=== PATIENT | female | born 1995 | race African-American/Black ===

== ENCOUNTER 2019-11-01 04:21 | Emergency (ER) | payer MEDICAID, OTHER ==
[2019-11-01] MEDS ORDERED: Acetaminophen 500 MG TAB ONE (04:43)
[2019-11-01] MEDS ORDERED: Morphine 4 MG/ML VIAL ONE ×2 (05:00→05:28)
[2019-11-01] MEDS ORDERED: Ondansetron PF 4 MG/2 ML Vial ONE ×2 (05:00→05:28)
[2019-11-01] MEDS ORDERED: cefTRIAXone\\ROCEPHIN 2 GM VIAL ONE (05:28)
[2019-11-01] MEDS ORDERED: Sodium Chloride 0.9% 100 ML ONE (05:28)
[2019-11-01 05:38] LABS: Anisocytosis MODERATE=16-30 cells (100X) (0-5/hpf); Band 14 % (5-11); Hemoglobin 7.3 g/dL (12.0-16.0); Hypochromia MODERATE=16-30 cells (100X) (0-5/hpf); Lymphocytes 10 % (21-51); MDiff Complete? YES; Mean Corpuscular Hemoglobin 18.7 pg (27.0-31.0); Mean Corpuscular Volume 64.4 fL (78.0-98.0); Mean Platelet Volume 8.2 fL (7.4-10.4); Microcytosis MODERATE=15-30 cells (100X) (0-5/hpf); Monocytes 8 % (0-10); Neutrophil 68 % (42-75); Platelet Count 313 thou/uL (130-400); Platelet Morphology Comment Appears Adequate; Poikilocytosis MODERATE=16-30 cells (100X) (0-5/hpf); RBC Distribution Width 16.3 % (11.5-14.5); Red Blood Cell (RBC) Count 3.89 mill/uL (4.20-5.40); White Blood Cell (WBC) Count 24.3 thou/uL (4.8-10.8)
[2019-11-01 05:44] LABS: BHCG - Serum Negative (NEGATIVE); Pregs Control Bar Appear? YES (CONTROL BAR)
[2019-11-01 05:44] LABS: ALT (SGPT) 9 U/L (8-55); AST (SGOT) 23 U/L (5-34); Albumin 3.9 g/dL (3.5-5.0); Alkaline Phosphatase 71 U/L (40-110); Anion Gap 17 mmol/L (10-20); BUN (Urea Nitrogen) 8 mg/dL (7.0-18.7); Bilirubin, Total 0.5 mg/dL (0.2-1.2); Calc. Creatinine Clearance 0 mL/min (70-130); Carbon Dioxide 19 mmol/L (22-29); Chloride 101 mmol/L (98-107); Estimated GFR-MDRD 84; Globulin 3.8 g/dL (2.4-3.5); Glucose 132 mg/dL (70-105); Potassium 3.4 mmol/L (3.5-5.1); Protein, Total 7.7 g/dL (6.0-8.3)
[2019-11-01 05:58] LABS: Sodium 134 mmol/L (136-145)
[2019-11-01] MEDS ORDERED: Vancomycin HCl 750 MG VIAL ONE (06:39)
[2019-11-01] MEDS ORDERED: Iopamidol 370 76% 100 ML VIAL ONE (09:00)
--- NOTE | 2019-11-01 11:30 | CT ---
CT OF THE PELVIS WITH IV CONTRAST: Date: 11/01/2019 INDICATION: History of buttock abscess. COMPARISON: None. FINDINGS: The visualized unopacified large and small bowel appear within normal limits. There is a normal appen ngoc in the right lower quadrant of the abdomen. The bladder and reproductive structures appear within normal limits. No free fluid or enlarged lymph nodes are evident. There are peripherally enhancing fluid and gas collections surrounding the anus. The collection on th e right measures 4.8 x 3.0 x 5.1 cm. The collection on the left measures 5.0 x 1.9 x 5.9 cm. These ex tend into the ischioanal fossa bilaterally. There is some reticulation of the subcutaneous fat of the buttocks along the midline through the cleft. There are enlarged lymph nodes within the inguinal reg ions. One of the largest on the left measures 1.5 cm. The largest on the right measures 1.1 cm. No de finite acute osseous abnormality is evident. IMPRESSION: 1. Prominent bilateral perianal abscesses with cellulitis of the gluteal regions bilaterally. Surgic al referral is recommended. 2. Enlarged lymph nodes in the inguinal region are likely reactive. 3. No intrapelvic fluid collection is grossly evident. POS: [facility]
== END 2019-11-01 06:58 | disposition short-term general hospital (02) ==
LOC: NAV ERS 04:21
DX: A41.9 Sepsis, unspecified organism (principal); K61.1 Rectal abscess; L03.315 Cellulitis of perineum; D64.9 Anemia, unspecified
CPT/HCPCS: 36415; 72193; 80053; 83605; 84703; 85025; 87040; 96365; 96375; J0696; J2270; J2405; J3370; J3490; Q9967

== ENCOUNTER 2020-08-08 05:56 | Emergency (ER) | payer OTHER ==
[2020-08-08 06:20] LABS: Bilirubin Negative (Negative); Blood, Urine Large (Negative); Clarity Clear (Clear); Glucose, Urine (Dipstick) Negative (Negative); Ketone, Urine Negative (Negative); Leukocyte Negative (Negative); Nitrite Negative (Negative); Protein, Urine (Dipstick) 100 mg/dL (Neg-Trace); Urobilinogen 0.2 mg/dL (Less than 2)
[2020-08-08 06:21] LABS: Specific Gravity, Urine 1.028 (1.002-1.036)
[2020-08-08 06:23] LABS: Pregnancy Test - Urine (BHCG) Negative (Negative); Pregu Control Background? CLEAR/WHITE (CLR/WHITE); Pregu Control Bar Appear? YES (CONTROL BAR); Specific Gravity 1.028 (1.002-1.036)
[2020-08-08 06:31] LABS: Mucous/LPF 3+ LPF (<2+); RBC/HPF 21-50 HPF (0-3); WBC/HPF 0-3 HPF (0-3)
== END 2020-08-08 06:33 | disposition home or self-care (01) ==
LOC: NAV ERS 05:56
DX: N93.9 Abnormal uterine and vaginal bleeding, unspecified (principal); D64.9 Anemia, unspecified; V48.4XXA Person boarding or alighting a car injured in noncollision transport accident, initial encounter
CPT/HCPCS: 81003; 81015; 81025; 99284